=== PATIENT | male | born 1935 | race Caucasian/White ===

== ENCOUNTER → 2024-05-25 11:25 | Outpatient (REF) | payer MEDICARE, OTHER, SELFPAY ==
[2024-05-25 13:00] LABS: PSA, Total - Diagnostic 0.09 ng/ml (0.0-4.0)
== END ==
LOC: REG 11:25
PROVIDERS: ATTENDING PHYSICIAN Specialist; FAMILY PHYSICIAN Internal Medicine
DX: C61 Malignant neoplasm of prostate (principal)
CPT/HCPCS: 36415; 84153